=== PATIENT | male | born 1950 | race Caucasian/White ===

== ENCOUNTER 2025-04-27 09:48 | Outpatient (CLI) | payer MEDICARE ==
[~2025-04-27 09:48] MED LIST: ATEN25TA PO; FAMO-131 PO; LEVO100T PO; ROSU10TA2 PO
== END 2025-04-27 23:59 | disposition home or self-care (01) ==
LOC: US 09:48
DX: N28.1 Cyst of kidney, acquired (principal); N18.32 Chronic kidney disease, stage 3b
CPT/HCPCS: 76770-TC